=== PATIENT | male | born 1945 | race Caucasian/White ===

== ENCOUNTER 2017-01-16 22:37 | Emergency (ER) | payer SELFPAY ==
[~2017-01-16] VITALS: Ht 157.5 cm; Wt 61.2 kg
--- NOTE | 2017-01-16 22:37 | NUR ---
[facility] [place] [facility] TO ER OF1
[2017-01-16 22:40] VITALS: BP 188/86
[2017-01-16] MEDS ORDERED: cloNIDine 0.1 MG TAB PO ONE (23:15)
--- NOTE | 2017-01-16 23:15 | NUR ---
Pt refused Clonidine. Notified Dr Pool.
[2017-01-16 23:25] VITALS: BP 184/102
--- NOTE | 2017-01-16 23:25 | NUR ---
Patient does not wish to proceed with medical care recommended by Dr Pool. Patient given information related to possible complications, up to and including , which could occur as a result of leaving hospital at this time. Patient verbalizes understanding of risks involved leaving against medical advice. Patient has signed AMA form.
--- NOTE | 2017-01-16 23:25 | NUR ---
Note aaron in ED - 01/16/17 at 2328 by [facility] Patient discharged with v/s stable. Written and verbal after care instructions given and explained. Patient verbalized understanding. Police with in custody. All questions addressed prior to discharge. Advised to follow up with PMD.
== END 2017-01-16 23:25 ==
LOC: MED 22:37
DX: Z02.89 Encounter for other administrative examinations (principal); F32.9 Major depressive disorder, single episode, unspecified; I10 Essential (primary) hypertension
CPT/HCPCS: 99283